=== PATIENT | female | born 1960 | race Caucasian/White ===

== ENCOUNTER 2022-10-21 08:45 | Outpatient (RCR) | payer BC, SELFPAY ==
--- NOTE | 2022-10-20 15:52 | ONC.NURNOTE ---
Patient needs transfusion tomorrow, this will be done on med-surg floor. Patient's was made aware.
[2022-10-21 11:09] VITALS: BP 108/47; PULSE 87; RESP 14; TEMP 36.5; O2SAT 100
[2022-10-21 11:33] VITALS: BP 103/84; PULSE 82; RESP 16; TEMP 35.8; O2SAT 100
[2022-10-21 12:14] VITALS: BP 99/58; PULSE 83; RESP 16; TEMP 36.5; O2SAT 100
[2022-10-21 12:18] VITALS: BP 104/63; PULSE 82; RESP 14; TEMP 36.5; O2SAT 100
[2022-10-21 14:33] VITALS: BP 103/61; PULSE 79; RESP 16; TEMP 36.8; O2SAT 99
== END 2022-10-21 14:38 | disposition home or self-care (01) ==
LOC: BLOODTX 08:45
PROVIDERS: Visit Provider Clinical Nurse Specialist
DX: D61.818 Other pancytopenia (principal); D69.6 Thrombocytopenia, unspecified
CPT/HCPCS: 36415; 36430; 86850; 86900; 86901; 86922; P9016

== ENCOUNTER 2023-01-30 08:30 | Outpatient (RCR) | payer BC, SELFPAY ==
[2022-10-28 08:45] VITALS: BP 99/68; PULSE 92; RESP 16; TEMP 36.4; O2SAT 100
[2022-10-28 10:38] VITALS: BP 98/65; PULSE 93; RESP 18; TEMP 36.7; O2SAT 100
[2022-10-28 10:55] VITALS: BP 100/66; PULSE 96; RESP 20; TEMP 36.6; O2SAT 100
[2022-10-28 11:40] VITALS: BP 101/67; PULSE 93; RESP 18; TEMP 36.9; O2SAT 100
[2022-10-28 12:58] VITALS: BP 103/69; PULSE 91; RESP 18; TEMP 37.1
[2022-10-28 13:28] VITALS: BP 100/64; PULSE 87; RESP 18; TEMP 36.8; O2SAT 100
[2022-11-30 09:41] VITALS: BP 96/60; PULSE 90; RESP 16; TEMP 36.5; O2SAT 99
[2022-11-30 10:00] VITALS: BP 105/68; PULSE 90; RESP 16; TEMP 37; O2SAT 99
[2022-11-30 10:45] VITALS: BP 99/60; PULSE 87; RESP 14; TEMP 36.7; O2SAT 98
[2022-11-30 11:44] VITALS: BP 101/63; PULSE 89; RESP 16; TEMP 37; O2SAT 100
[2022-11-30 12:11] VITALS: BP 104/67; PULSE 88; RESP 16; TEMP 37; O2SAT 99
[2022-12-23 11:14] VITALS: BP 90/51; PULSE 91; RESP 16; TEMP 36.4; O2SAT 100
[2022-12-23 11:33] VITALS: BP 99/64; PULSE 85; RESP 16; TEMP 36.9; O2SAT 100
[2022-12-23 12:18] VITALS: BP 142/78; PULSE 68; RESP 16; TEMP 36; O2SAT 98
[2022-12-23 13:14] VITALS: BP 97/63; PULSE 85; RESP 16; TEMP 36.9; O2SAT 100
[2022-12-23 13:18] VITALS: BP 97/61; PULSE 85; RESP 16; TEMP 36.9; O2SAT 100
[2022-12-23 14:17] VITALS: BP 95/62; PULSE 79; RESP 16; TEMP 37.1; O2SAT 97
--- NOTE | 2023-01-27 08:04 | ONC.NURNOTE ---
Dx: Bladder Cancer, chemotherapy induced anemia. Left message on phone for patient to call back to schedule blood transfusion
[2023-01-30 08:29] VITALS: BP 109/64; PULSE 96; RESP 16; TEMP 36.7
[2023-01-30 08:56] VITALS: BP 104/64; PULSE 96; RESP 16; TEMP 36.7; O2SAT 97
[2023-01-30 09:13] VITALS: BP 99/61; PULSE 77; RESP 18; TEMP 36.9; O2SAT 98
[2023-01-30 09:58] VITALS: BP 105/66; PULSE 69; RESP 20; TEMP 37.1; O2SAT 99
[2023-01-30 11:22] VITALS: BP 100/64; PULSE 67; RESP 16; TEMP 36.9; O2SAT 99
== END 2023-04-26 23:59 | disposition home or self-care (01) ==
LOC: CCIC 08:30
PROVIDERS: Visit Provider Clinical Nurse Specialist
DX: C67.9 Malignant neoplasm of bladder, unspecified (principal); D64.81 Anemia due to antineoplastic chemotherapy
CPT/HCPCS: 36415; 36430; 86850; 86900; 86901; 86922; P9016

== ENCOUNTER 2023-07-25 14:17 | Inpatient (IN) | payer BC, SELFPAY ==
[2023-07-25 14:49] VITALS: BP 139/85; PULSE 119; RESP 22; TEMP 37.1; O2SAT 94; BMI 16.8
--- NOTE | 2023-07-25 16:28 | PC.SOCIAL ---
Received a phone call from Jana Quintana at [facility] at [phone] requesting information and status on pt. Jana informs that pt will be opening for services with a [facility] branch in the [facility]. salesperson women's hats for the [facility] branch is Laura and she can be reached at [phone]. Discussed with Laura and she informs that [facility] can open hospice services at the pt's home tomorrow at 9:00 am. Provided update to ED nurse and ED MD. informs that pt's has concerns for stairs in the home and pain management. Provided update to Laura at [facility]. Laura will follow up with ED and pt's regarding discharge plan. Laura is requesting that if pt discharges tonight, pt have a pain medication prescription for a few days due to Hospice having to order and get medication and they do not want a lapse in pain medication. Provided update to ED Nurse. Social work will follow up as needed.
[2023-07-25] MEDS: HYDROmorphone 0.5 mg/0.5 ml inj 1 MG IVP ×3 (16:34→22:12)
[2023-07-25] MEDS: ONDANSETRON 2 MG/ML inj 4 MG IVP (16:34)
[2023-07-25 17:01] LABS: Lactate* 1.8 mmol/L (0.5-1.9)
[2023-07-25 17:04] LABS: Hematocrit 29.8 % (33.0-51.0); Hemoglobin* 8.8 gm/dL (12.0-16.0); Immature Granulocytes Pct Auto 0.8 %; Lymphocytes Percent Auto 3.5 % (20-44); Mean Corpuscular HGB Conc 30 gm/dL (32-36); Mean Corpuscular Hemoglobin 25 pg (26-34); Mean Corpuscular Volume 85 fL (80-100); Monocytes Percent Auto 5.4 % (0.0-11.0); Neutrophils Percent Auto 90.3 % (42.0-72.0); Platelet Count* 371 K/uL (140-440); RDW Coefficient of Variation % 16.9 % (11.5-15.5); Red Blood Count 3.52 m/uL (4.00-5.20); White Blood Count* 13.12 K/uL (4.50-11.00)
[2023-07-25 17:06] LABS: Slide Review Reflex No
--- NOTE | 2023-07-25 17:12 | ED.NURSE ---
Spoke to [facility] director hospice operations. She just received referral for patient this afternoon. She will plan on sending out Jana, a hospice clinical unit coordinator, tomorrow to the [facility].
--- NOTE | 2023-07-25 17:30 | ED.GENADULT ---
HPI - General Adult General Date Seen: 07/25/23 Chief complaint: Unspecified Complaint, Adult Stated complaint: Needs placement--referred by [facility] Time Seen by Provider: 07/25/23 14:52 History of Present Illness HPI narrative: This is a 62-year-old female who is brought to the ER today by her . They were referred to the ER by their oncologist, Dr. Mishra through [facility] in [place]. She has a past medical history of metastatic urothelial carcinoma. Diagnosed in August 2022. She has known metastases to her bones and lungs also with a recent spot in her liver. She had been treated with chemotherapy last spring with some response. She was switched to immunotherapy over the summer with worsening disease. She is now back on chemo. Currently on Enfortumab and Pembro, and has had 5 or 6 rounds dating back to April.. Her last visit with the oncologist was on July 18. I am provided with a copy of the clinic note from that visit. According to that note she has recurrent noninvasive bladder cancer. Goal of treatment is palliative. PET scan on 06/19/2023 showed partial favorable response involving lung and liver but FDG avid sclerosis throughout much of the skeleton consistent with a wide spread osseous metastasis. She is chronically on opiates for her bone pain. She takes methadone 7.5 mg in the morning, 7.5 mg in the afternoon, and 10 mg in the evening. She takes oxycodone 10 mg every 8 hours as needed for breakthrough pain. She is on roughly 20-30 mg of oxycodone every day. Despite her opiates she has had increasing and worsening debilitating pain for the past few weeks. She has been having so much pain, especially in her back, that she is not able to get out of bed. She has been living with her . He has been trying to care for her but she has been almost essentially bed ridden. They have an entire flight of 12 steps to get into their house and then an additional flight of 12 steps to get up to her bedroom. She has been living on the main floor of the house but not able to go up stairs for the past few weeks. She has also had very poor appetite and decreased oral intake. She has not been functioning well and has been living in misery. They went back to the clinic today. Apparently based on her clinical deterioration, her oncologist felt that she was not suitable for on chemo today. He has placed a referral to begin the process of arranging hospice care. Because of her pain, he referred her here to the hospital for pain control. Her says with her weakness and pain he does not think he can get her back up the stairs to get into their home. I contacted Dr. Mishra on the phone. Based on a conversation he indicates that likely that the patient would transition to hospice and palliative care. Dr. Mishra would like her to have 1 more PET scan which is scheduled for August 03 to double check for progression of disease. Based on his clinical assessment, he think she is not likely to benefit from further chemo. She has been on Eliquis 2.5 mg b.i.d. for prophylaxis. Labs drawn in clinic this morning for pre chemo planning showed a white count of 14.1. Dr. Alvarez indicates that she has been running high for the past few weeks. Hemoglobin is 10.0. Platelet count was 491. Recently she had been thrombocytopenic. [facility] placed a referral for hospice. The hospital nephrology social worker was able to contact [facility]. Discussed with Sergio now at 6 8 2 2 That organization would be able to have a person out to meet with the patient and her at their house as early as tomorrow to begin the process of explaining hospice and figuring out what is necessary to meet their needs. It does not sound like [facility] has a long-term care facility or immediate nursing supportive care to support the patient at home tonight. Related Data Home Medications Medication Instructions Recorded Confirmed calcium carbonate 500 mg calcium 500 mg PO DAILY 11/30/22 07/25/23 (1,250 mg) tablet cholecalciferol (vitamin D3) 50 50 mcg PO DAILY 11/30/22 07/25/23 mcg (2,000 unit) capsule famotidine 20 mg tablet 20 mg PO BID 11/30/22 07/25/23 gabapentin 600 mg tablet 600 mg PO QPM 11/30/22 07/25/23 lorazepam 0.5 mg tablet 0.5 mg PO Q4H PRN nausea 11/30/22 07/25/23 multivitamin 1 tab PO DAILY 11/30/22 07/25/23 ondansetron 8 mg disintegrating 8 mg PO Q8H PRN 11/30/22 07/25/23 tablet oxycodone 5 mg tablet 5 mg PO Q4H PRN 11/30/22 07/25/23 polyethylene glycol 3350 17 17 g PO DAILY PRN 11/30/22 07/25/23 gram/dose oral powder (ClearLax) prochlorperazine maleate 5 mg 5 - 10 mg PO Q6H PRN nausea 11/30/22 07/25/23 tablet sennosides 8.6 mg tablet (Sparkle-kvng) 8.6 mg PO BID 11/30/22 07/25/23 acetaminophen 500 mg capsule 1,000 mg PO QID PRN 07/25/23 07/25/23 apixaban 2.5 mg tablet (Eliquis) 2.5 mg PO BID 07/25/23 07/25/23 gabapentin 300 mg capsule 300 mg PO QAM 07/25/23 07/25/23 iron,carbonyl 65 mg-vitamin C 125 1 tab PO DAILY 07/25/23 07/25/23 mg tablet,delayed release (Vitron-C) levothyroxine 25 mcg tablet 25 mcg PO DAILY 07/25/23 07/25/23 methadone 5 mg tablet 10 mg PO Q8H 07/25/23 07/25/23 mirtazapine 15 mg tablet 15 mg PO DAILY 07/25/23 07/25/23 sennosides 8.6 mg-docusate sodium 1 tab PO BID PRN constipation 07/25/23 07/25/23 50 mg tablet (Senna Plus) Allergies Allergy/AdvReac Type Severity Reaction Status Date / Time cat dander Allergy Mild Verified 07/25/23 14:40 dog dander Allergy Mild Verified 07/25/23 14:40 grass pollen Allergy Mild Verified 07/25/23 14:40 weed pollen Allergy Mild Verified 07/25/23 14:40 tree and shrub pollen Allergy Verified 07/25/23 14:40 [facility] PFSH Medical History Cancer cachexia ?R64 - Cachexia (ICD-10) Cancer associated pain ?G89.3 - Neoplasm related pain (acute) (chronic) (ICD-10) Metastatic urothelial carcinoma ?C79.10 - Secondary malignant neoplasm of unspecified urinary organs (ICD-10) Social History Narrative: . Lives with her . Active in her nithin. Now requests comfort focus measures and consultation for hospice services. What is your current living situation?: I presently have a place to live Problems where you live: no known problems Problems where you live details: none In the past 12 months, utilities in danger of being shut off: no In past 12 months, lack of transportation kept you from medical appts, meetings, work, or getting things needed for daily living: no In the past 12 mos, have been you worried that your food would run out before you had money to buy more?: never true In the past 12 mos, the food you bought just didn't last and you didn't have money to buy more?: never true Highest level of school completed/degree received: Bachelor's degree Smoking Status: Never smoker Do you use any of these nicotine containing products: None Second hand tobacco smoke exposure: No How often do you have a drink containing alcohol: monthly or less How many standard drinks containing alcohol do you have on a typical day: 1 or 2 How often do you have six or more drinks on one occasion: Never AUDIT-C Alcohol total score: 1 Non-prescribed substance use: denies use Caffeine: No How often does anyone, including family, friends and others, physically hurt you: never How often does anyone, including family, friends and others, insult or talk down to you: never How often does anyone, including family, friends and others, threaten you with harm: never How often does anyone, including family, friends and others, scream or curse at you: never service: No Exam Narrative: Exam Narrative: Constitutional: She is alert but uncomfortable appearing. Looks very frail and thin and chronically ill. Pale. HENT: Head: Atraumatic. Nose: Nose normal. Mouth/Throat: Oral mucosa is clear and moist. no trismus. Eyes: Conjunctivae normal. EOM normal. Pupils equal, round, and reactive to light. No scleral icterus. Neck: Normal range of motion. Neck supple. No tracheal deviation present. Cardiovascular: Normal rate, regular rhythm. No gallop. No friction rub. No murmur heard. Symmetric radial artery pulses Pulmonary/Chest: Effort normal. No stridor. No respiratory distress. No wheezes. No rales. No rhonchi . Abdominal: Soft. No distension. No mass. No tenderness. No rebound. No guarding. Musculoskeletal: 2 to weakness and pain she is not able to sit up for back exam. RUE: Normal range of motion. No tenderness. No deformity LUE: Normal range of motion. No tenderness. No deformity RLE: Normal range of motion. No edema. No tenderness. No deformity LLE: Normal range of motion. No edema. No tenderness. No deformity Neurological: Alert and oriented to person, place, and time, but at times seems confused. provides most of her history.. Normal strength. CN II-VII intact. No sensory deficit. GCS eye subscore is 4. GCS verbal subscore is 5. GCS motor subscore is 6. Normal coordination Skin: Skin is warm and dry. No rash noted. No pallor. Normal capillary refill. Psychiatric: Normal mood. Flat affect. supportively at her side. Const: Vital Signs, click to edit/add: Vital Signs - 24 hr 07/25/23 14:49 Temperature 98.7 F Pulse Rate [Pulse Oximeter] 119 H Respiratory Rate 22 Blood Pressure [Ri ght Upper Arm] 139/85 Pulse Oximetry 94 Oxygen Delivery Me thod Room Air Course Course ED Course: Had initial discussion with the patient and her . It sounds like they have been doing treatment for her cancer but were told today that there was likely no further benefit to chemo so her oncologist referred them to hospice today. Her says he has been aware that the and would likely come but really was not prepared for to be today. Their primary goal will be comfort. They really are not interested in any interventions that would prolong her life and suffering, unless they lead to improvement in pain or potential cure for her malignancy. Contacted social Work and discussed with Jacqueline. They have already been in contact with [facility], with Jacqueline at [phone]. [facility] would be able to have a person out to the patient's home tomorrow at 9 to help is to start the intake process for hospice. Patient and her feel that she is too weak and would not be able to walk upper 12 steps to get into her home. I made a call to Dr. Mishra, oncology. I reviewed the patient's presentation. They had been pursuing palliative chemotherapy. However given worsening chest week to this week he feels that chemotherapy is not indicated today. Dr. Mishra feels this is probably terminal and the patient should probably go to palliative care and hospice. Dr. Mishra would like to have a follow-up PET scan next week, to confirm progression of the cance, , but understands that may not be feasible. More importantwould be treated the patient's pain and keeping her comfortable. He requests that we call him back with any questions on his cellphone [phone]. We established IV and administered IV Dilaudid. Patient was more comfortable after that. She was able to set up an eat a small amount of food. She was still too weak to get up and walk her go home. We felt that hospitalization was warranted. Unfortunately there were initially no beds available here in [place]. We looked for other beds in the regions. There were no beds at [facility], or other hospitals in our region. Patient does not want to transfer to [facility] after having a bad experience there in the past. Subsequently we were able to open up a bed on the medical floor. Patient is accepted for admission by the hospitalist, Dr. Carr. He Vital Signs Vital signs: Initial Vital Signs Temperature 98.7 F 07/25/23 14:49 Temperature Source Temporal Artery Scan 07/25/23 14:49 Pulse Rate 119 H 07/25/23 14:49 Pulse Rhythm Regular 07/25/23 14:49 Pulse Strength 3+ Normal 07/25/23 14:49 Respiratory Rate 22 07/25/23 14:49 Blood Pressure 139/85 07/25/23 14:49 Blood Pressure Mean 103 07/25/23 14:49 Blood Pressure Position Sitting 07/25/23 14:49 Pulse Oximetry 94 07/25/23 14:49 Oxygen Delivery Method Room Air 07/25/23 14:49 Vital Signs Temperature 98.7 F 07/25/23 14:49 Pulse Rate 119 H 07/25/23 14:49 Respiratory Rate 22 07/25/23 14:49 Blood Pressure 139/85 07/25/23 14:49 Pulse Oximetry 94 07/25/23 14:49 Oxygen Delivery Method Room Air 07/25/23 14:49 Temperature 97 F L 07/25/23 21:03 Pulse Rate 103 H 07/25/23 21:03 Respiratory Rate 20 07/25/23 22:41 Blood Pressure 128/78 07/25/23 21:03 Pulse Oximetry 84 L 07/25/23 22:41 Oxygen Delivery Method Room Air 07/25/23 22:41 Medications Administered Medications: Generic Name Dose Route Start Last Admin Trade Name Freq PRN Reason Stop Dose Admin Apixaban 2.5 mg 07/25/23 21:00 07/25/23 22:08 Apixaban 5 Mg Tablet PO 2.5 mg BID SEBASTIAN Administration Famotidine 20 mg 07/25/23 21:00 07/25/23 22:12 Famotidine 20 Mg Tablet PO 20 mg BID SEBASTIAN Administration Hydromorphone HCl 1 mg 07/25/23 15:44 07/25/23 22:12 Hydromorphone 0.5 Mg/0.5 Ml Inj IVP 0.5 mg Q1H PRN Administration Pain Methadone HCl 10 mg 07/25/23 22:00 07/25/23 22:12 Methadone 5 Mg Tablet PO 10 mg Q8H SEBASTIAN Administration Sennosides 1 tab 07/25/23 21:00 07/25/23 22:07 Sennosides 1 Tab Tablet PO 1 tab BID SEBASTIAN Administration Sodium Chloride 5 ml 07/25/23 21:00 07/25/23 21:41 Sodium Chloride 0.9 % (Flush) 10 Ml Syringe IVF 5 ml BID SEBASTIAN Administration Discontinued Medications Generic Name Dose Route Start Last Admin Trade Name Freq PRN Reason Stop Dose Admin Ondansetron HCl 4 mg 07/25/23 15:44 07/25/23 16:34 Ondansetron 2 Mg/Ml Inj IVP 07/25/23 15:45 4 mg ONCE ONE Administration Medical Decision Making MDM Narrative Medical decision making narrative: This is a 62-year-old female with advancing metastatic urothelial carcinoma from her bladder. She has known Mets to her bones, lungs, liver. She has progressing illness despite chemotherapy. She was sent here from her oncologist office to the ER today for pain control and with a plan to initiate hospice per The patient and her are a bit surprised by the change in treatment plan, but they are accepting. Their main goal is comfort and not to have aggressive workup or any procedures that might prolong her life without improving her pain or improving her cancer. Their main goal is comfort care. Did do screening labs which showed normal kidney function and electrolytes. CBC is abnormal with a mild leukocytosis, anemia which is likely due to chronic disease. At this point no fever or other clear symptoms of infection. Should be admitted to the hospitalist service. Staff from [facility] will apparently be able to consult with the patient and her tomorrow morning at 10:00 p.m. here at the hospital. Lab Data Labs: Lab Results 07/25/23 Range/Units 16:55 WBC 13.12 H (4.50-11.00) K/uL RBC 3.52 L (4.00-5.20) m/uL Hgb 8.8 L (12.0-16.0) gm/dL Hct 29.8 L (33.0-51.0) % MCV 85 (80-100) fL MCH 25 L (26-34) pg MCHC 30 L (32-36) gm/dL RDW Coeff of Jessica 16.9 H (11.5-15.5) % Plt Count 371 (140-440) K/uL Neut % (Auto) 90.3 H (42.0-72.0) % Lymph % (Auto) 3.5 L (20-44) % Cherry % (Auto) 5.4 (0.0-11.0) % Eos % (Auto) 0.0 (0.0-7.0) % Baso % (Auto) 0.0 (0.0-3.0) % Neut # (Auto) 11.80 H (1.7-7.0) K/uL Lymph # (Auto) 0.50 L (0.90-2.90) K/uL Cherry # (Auto) 0.70 (0.00-0.90) K/UL Eos # (Auto) 0.00 (0.00-0.50) K/uL Baso # (Auto) 0.00 (0.00-0.30) K/uL Abs Immat Gran (auto) 0.10 (0.00-0.30) K/uL Imm/Tot Granulo (auto) 0.8 % Sodium 134 L (135-149) mmol/L Potassium 3.7 (3.6-5.1) mmol/L Chloride 102 (96-114) mmol/L Carbon Dioxide 24 (20-32) mmol/L Anion Gap 8 (7-15) mEq/L BUN 15 (7-30) mg/dL Creatinine 0.3 L (0.5-1.5) mg/dL Estimated Creat Clear 38.43 Estimated GFR 120 ml/min Glucose 102 (60-115) mg/dL Lactate 1.8 (0.5-1.9) mmol/L Calcium 8.4 (8.4-10.6) mg/dL Total Bilirubin 0.4 (0.1-1.5) mg/dL AST 33 (12-35) U/L ALT 12 (4-35) U/L Alkaline Phosphatase 352 H (40-150) U/L Total Protein 6.1 (6.0-8.3) g/dL Albumin 3.2 L (3.3-5.0) g/dL Discharge Plan Discharge Clinical Impression: Intractable back pain, Generalized weakness, Malignant neoplasm metastatic from bladder Patient Disposition: Admitted As Observation
[2023-07-25 17:47] LABS: Albumin* 3.2 g/dL (3.3-5.0); Chloride* 102 mmol/L (96-114); Potassium* 3.7 mmol/L (3.6-5.1); Sodium* 134 mmol/L (135-149)
[2023-07-25 17:50] LABS: Alanine Aminotransferase* 12 U/L (4-35); Alkaline Phosphatase* 352 U/L (40-150); Aspartate Amino Transferase* 33 U/L (12-35); Bilirubin Total* 0.4 mg/dL (0.1-1.5); Blood Urea Nitrogen* 15 mg/dL (7-30); Carbon Dioxide* 24 mmol/L (20-32); Creatinine* 0.3 mg/dL (0.5-1.5); Est. Creatinine Clearance* 38.43; Estimated Glomerular Filt Rate 120 ml/min; Glucose* 102 mg/dL (60-115)
[2023-07-25 17:51] LABS: Calcium* 8.4 mg/dL (8.4-10.6)
[2023-07-25 18:02] LABS: Anion Gap 8 mEq/L (7-15)
[2023-07-25 18:21] LABS: Total Protein* 6.1 g/dL (6.0-8.3)
--- NOTE | 2023-07-25 19:47 | ED.NURSE ---
I have rounded on patient to offer pain medications, she has declined and will push call light when needed.
--- NOTE | 2023-07-25 20:46 | PC.NURSE ---
2030 Pt tranferred via gurney with multiple items of belongings. accompany and is supportive. 3 staff to transfer pt to bed 262 on med-surg. Pt tolerated all this well. Prior to transfer major areas of pain are right leg and back.
[2023-07-25 21:03] VITALS: BP 128/78; PULSE 103; RESP 20; TEMP 36.1; O2SAT 84; BMI 16.5
--- NOTE | 2023-07-25 21:22 | PM.IMHP1 ---
Hospitalist- H&P: HPI History of Present Illness Date Seen: 07/25/23 Chief complaint: Needs placement--referred by [facility] Narrative: Bernadette Pastrana is a 62 year old woman with known widely metastatic urothelial carcinoma, progressive despite chemotherapy and immunotherapy efforts. Has known metastases to lungs, liver, and her skeleton. Presented to the oncology clinic today and was deemed no longer safe to continue to receive chemotherapy. Referral was made for hospice consultation. Patient was urged to present to the hospital emergency department to assist with ongoing efforts at difficult to manage cancer associated pain. Has been working with her oncologist and the staff in her oncology clinic to achieve a modicum of pain control. Has been on methadone 7.5 mg in the morning, 7.5 mg in the afternoon, and 10 mg at bedtime. Additionally has been taking as needed oxycodone, up to 20-30 mg daily, but still not achieving adequate pain control. She indicates her life has been miserable the last several days. Has had minimal oral intake recently. Has BMI of 16.8 with a weight of 41.7 kg height of 157.5 cm. Has evolving cancer cachexia and weight loss. Patient and are known agreement that they wish to proceed with comfort focus measures only with DNR DNI resuscitation status. They understand that she is no longer a candidate for chemotherapy or immunotherapy. She is not a surgical candidate. She declines any additional disease directed diagnostic or interventional efforts. [facility] Medical History Cancer cachexia ?R64 - Cachexia (ICD-10) Cancer associated pain ?G89.3 - Neoplasm related pain (acute) (chronic) (ICD-10) Metastatic urothelial carcinoma ?C79.10 - Secondary malignant neoplasm of unspecified urinary organs (ICD-10) Social History Narrative: . Lives with her . Active in her nithin. Now requests comfort focus measures and consultation for hospice services. Meds Home Medications and Allergies Home Medications Medication Instructions Recorded Confirmed Type calcium carbonate 500 mg calcium 500 mg PO DAILY 11/30/22 07/25/23 History (1,250 mg) tablet cholecalciferol (vitamin D3) 50 50 mcg PO DAILY 11/30/22 07/25/23 History mcg (2,000 unit) capsule famotidine 20 mg tablet 20 mg PO BID 11/30/22 07/25/23 History gabapentin 600 mg tablet 600 mg PO QPM 11/30/22 07/25/23 History lorazepam 0.5 mg tablet 0.5 mg PO Q4H PRN nausea 11/30/22 07/25/23 History multivitamin 1 tab PO DAILY 11/30/22 07/25/23 History ondansetron 8 mg disintegrating 8 mg PO Q8H PRN 11/30/22 07/25/23 History tablet oxycodone 5 mg tablet 5 mg PO Q4H PRN 11/30/22 07/25/23 History polyethylene glycol 3350 17 17 g PO DAILY PRN 11/30/22 07/25/23 History gram/dose oral powder (ClearLax) prochlorperazine maleate 5 mg 5 - 10 mg PO Q6H PRN nausea 11/30/22 07/25/23 History tablet sennosides 8.6 mg tablet (Sparkle-kvng) 8.6 mg PO BID 11/30/22 07/25/23 History acetaminophen 500 mg capsule 1,000 mg PO QID PRN 07/25/23 07/25/23 History apixaban 2.5 mg tablet (Eliquis) 2.5 mg PO BID 07/25/23 07/25/23 History gabapentin 300 mg capsule 300 mg PO QAM 07/25/23 07/25/23 History iron,carbonyl 65 mg-vitamin C 125 1 tab PO DAILY 07/25/23 07/25/23 History mg tablet,delayed release (Vitron-C) levothyroxine 25 mcg tablet 25 mcg PO DAILY 07/25/23 07/25/23 History methadone 5 mg tablet 10 mg PO Q8H 07/25/23 07/25/23 History mirtazapine 15 mg tablet 15 mg PO DAILY 07/25/23 07/25/23 History sennosides 8.6 mg-docusate sodium 1 tab PO BID PRN constipation 07/25/23 07/25/23 History 50 mg tablet (Senna Plus) Allergies Allergy/AdvReac Type Severity Reaction Status Date / Time cat dander Allergy Mild Verified 07/25/23 14:40 dog dander Allergy Mild Verified 07/25/23 14:40 grass pollen Allergy Mild Verified 07/25/23 14:40 weed pollen Allergy Mild Verified 07/25/23 14:40 tree and shrub pollen Allergy Verified 07/25/23 14:40 Exam Narrative: Exam Narrative: I examined the patient in the emergency department with her at her side. By the time examine her she appears comfortable and in no acute distress. Has cachectic appearance, protruding bony prominences in face with sunken eyes. Thin limbs with muscle atrophy. Alert, oriented to self, place, time, situation. Gracious, friendly, cooperative. Lungs are clear to auscultation. Heart tones with regular rhythm, tachycardic. Abdomen is thin with active bowel sounds, soft. No focal motor neurologic deficits. Const: Vital Signs, click to edit/add: Vital Signs - 24 hr 07/25/23 14:49 Temperature 98.7 F Pulse Rate [Pulse Oximeter] 119 H Respiratory Rate 22 Blood Pressure [Ri ght Upper Arm] 139/85 Pulse Oximetry 94 Oxygen Delivery Me thod Room Air Documenting provider has reviewed patient's vital signs: yes Hospitalist - H&P: Result Labs Labs: Short CBC 07/25/23 Range/Units 16:55 WBC 13.12 H (4.50-11.00) K/uL Hgb 8.8 L (12.0-16.0) gm/dL Hct 29.8 L (33.0-51.0) % Plt Count 371 (140-440) K/uL BMP 07/25/23 16:55 Sodium 134 L Potassium 3.7 Chloride 102 Carbon Dioxide 24 BUN 15 Creatinine 0.3 L Glucose 102 Calcium 8.4 Liver Function 07/25/23 Range/Units 16:55 Total Bilirubin 0.4 (0.1-1.5) mg/dL AST 33 (12-35) U/L ALT 12 (4-35) U/L Alkaline Phosphatase 352 H (40-150) U/L Albumin 3.2 L (3.3-5.0) g/dL Assessment and Plan Assessment and plan (1) Metastatic urothelial carcinoma: Problem comment: - diagnosed August 2022 - widely metastatic to lungs, liver, and throughout the skeleton - disease progression despite having been treated with chemotherapy and immunotherapy - oncologist, Dr. Mishra, [place] [facility], [place], [place] Status: Acute (2) Cancer associated pain: Problem comment: - difficult to manage pain despite escalating efforts in outpatient setting Status: Acute (3) Cancer cachexia: Status: Acute (4) Terminal care: Problem comment: - goal of treatment had been palliative - referred for hospice care on 07/25/2023 by her oncologist Status: Acute Plan 1. Reviewed impression with patient and . 2. Answered their questions. 3. They clearly state that they wish to proceed with comfort focus measures only with DNR DNI resuscitation status. They decline any additional disease directed diagnostic or interventional efforts. 4. Intensify her comfort focus treatment efforts in the hospital. 5. Work with drug abuse social worker to try to establish hospice referral and consultation. 6. Their goal is to try to return home with increasing support and services including with hospice if at all possible. Meanwhile work on establishing better pain management before returning to their home. 7. Patient and agreeable with above stated plans and recommendations.
[2023-07-25] MEDS: SODIUM CHLORIDE 0.9 % (FLUSH) 10 ML SYRINGE 5 ML IVF (21:41)
[2023-07-25] MEDS: SENNOSIDES 1 TAB TABLET PO (22:07)
[2023-07-25] MEDS: APIXABAN 5 MG TABLET 2.5 MG PO (22:08)
[2023-07-25] MEDS: FAMOTIDINE 20 MG TABLET PO (22:12)
[2023-07-25] MEDS: METHADONE 5 MG TABLET 10 MG PO (22:12)
[2023-07-25 22:41] VITALS: RESP 20; O2SAT 84
[2023-07-25 23:00] VITALS: PULSE 106; RESP 22; O2SAT 95
[2023-07-26] MEDS: HYDROmorphone 0.5 mg/0.5 ml inj 1 MG IVP ×6 (00:22→21:13)
[2023-07-26] MEDS: SODIUM CHLORIDE 0.9 % (FLUSH) 10 ML SYRINGE 5 ML IVF ×9 (00:22→22:53)
[2023-07-26] MEDS: MORPHINE 10 MG/0.5 ML ORAL SOLN PO ×8 (00:29→22:53)
[2023-07-26 07:00] VITALS: PULSE 112; RESP 20; O2SAT 94
[2023-07-26] MEDS: ONDANSETRON ODT 4 MG TAB 8 MG PO (07:44)
[2023-07-26] MEDS: METHADONE 5 MG TABLET 10 MG PO (07:50)
[2023-07-26] MEDS: LEVOTHYROXINE 25 MCG TABLET PO (07:50)
[2023-07-26] MEDS: LORazepam 2 MG/ML inj IVP ×6 (08:35→22:52)
[2023-07-26] MEDS: fentaNYL 25 MCG/HR PATCH 1 PATCH TRANSDERMA (09:54)
--- NOTE | 2023-07-26 10:11 | REH.OT ---
Pt. not appropriate for OT eval. Pt. to initiate hospice services. Order Cancelled.
--- NOTE | 2023-07-26 14:34 | PM.IMPN1 ---
Progress Note: A&P Assessment and plan (1) Metastatic urothelial carcinoma: Problem details: - diagnosed August 2022 - widely metastatic to lungs, liver, and throughout the skeleton - disease progression despite having been treated with chemotherapy and immunotherapy - oncologist, Dr. Mishra, [place] [facility], [place], [place] Status: Acute (2) Cancer associated pain: Problem details: - difficult to manage pain despite escalating efforts in outpatient setting Status: Acute (3) Cancer cachexia: Status: Acute (4) Terminal care: Problem details: - goal of treatment had been palliative - referred for hospice care on 07/25/2023 by her oncologist Status: Acute Plan - hospice will patient in the hospital today to discuss admission - continue current pain medications to ensure adequate pain control - likely home with hospice tomorrow (07/27) - updated at bedside Subjective Date Seen: 07/26/23 Interval history: Bernadette was admitted to the hospital on 07/26/23 for poorly managed pain. Exam Narrative: Exam Narrative: GEN: Patient is lying in bed, cachectic and appears chronically ill CV: Pulse palpates as sinus tachycardia R: Tachypnea at rest Const: Vital Signs, click to edit/add: Vital Signs - 24 hr 07/25/23 14:49 07/25/23 21:03 07/25/23 22:41 Temperature 98.7 F 97 F L Pulse Rate [Pulse Oximeter] 119 H 103 H Respiratory Rate 22 20 20 Blood Pressure [Le ft Arm] 128/78 Blood Pressure [Ri ght Upper Arm] 139/85 Pulse Oximetry 94 84 L 84 L Oxygen Delivery Me thod Room Air Room Air Room Air Oxygen Flow Rate 07/25/23 23:00 07/25/23 23:00 07/26/23 07:00 Temperature Pulse Rate [Pulse Oximeter] 106 H Respiratory Rate 22 20 Blood Pressure [Le ft Arm] Blood Pressure [Ri ght Upper Arm] Pulse Oximetry 95 94 Oxygen Delivery Me thod Nasal Cannula Nasal Cannula Oxygen Flow Rate 1 1 07/26/23 07:00 Temperature Pulse Rate [Pulse Oximeter] 112 H Respiratory Rate 20 Blood Pressure [Le ft Arm] Blood Pressure [Ri ght Upper Arm] Pulse Oximetry Oxygen Delivery Me thod Oxygen Flow Rate Labs Labs: Laboratory Results - last 24 hr 07/25/23 16:55 WBC 13.12 H RBC 3.52 L Hgb 8.8 L Hct 29.8 L MCV 85 MCH 25 L MCHC 30 L RDW Coeff of Jessica 16.9 H Plt Count 371 Neut % (Auto) 90.3 H Lymph % (Auto) 3.5 L [place] % (Auto) 5.4 Eos % (Auto) 0.0 Baso % (Auto) 0.0 Neut # (Auto) 11.80 H Lymph # (Auto) 0.50 L [place] # (Auto) 0.70 Eos # (Auto) 0.00 Baso # (Auto) 0.00 Abs Immat Gran (auto) 0.10 Imm/Tot Granulo (auto) 0.8 Sodium 134 L Potassium 3.7 Chloride 102 Carbon Dioxide 24 Anion Gap 8 BUN 15 Creatinine 0.3 L Estimated Creat Clear 38.43 Estimated GFR 120 Glucose 102 Lactate 1.8 Calcium 8.4 Total Bilirubin 0.4 AST 33 ALT 12 Alkaline Phosphatase 352 H Total Protein 6.1 Albumin 3.2 L
[2023-07-26 15:00] VITALS: PULSE 120; RESP 22
--- NOTE | 2023-07-26 15:02 | PC.SOCIAL ---
Discharge planning- Phone call to Jana Quintana at [facility] at [phone]. Jana met with pt's this morning for an informational hospice meeting. Pt's informed that he would like to take pt home with hospice in place. Contact for [facility] will be Corrie at [phone]. Hospice is requesting information on what DME is needed in the home and discharge plans. Met with pt's in room to discuss discharge plans. Pt's is feeling overwhelmed and unsure if he can handle pt's care at home. Discussed options with and provided information for home aide care. Discussed options on shelter placement with hospice in place. Pt's would like to discuss with pt's sister this evening and then make a decision. If pt's sister can assist in the home with cares pt's would like to try taking pt home with hospice. Provided update to and Corrie at [facility]. This worker will reach out to [facility] tomorrow morning with discharge plans. Informed [facility] that pt will need a hospital bed at home. Social work will follow up as needed.
--- NOTE | 2023-07-26 15:23 | PC.NURSE ---
End Of Shift Note: When I first arrived on shift. Patient was clearly in a lot of pain. She was very restless and even stated I am in so much pain I can't get comfortable. She received several medications and she was able to rest on and off throughout shift. See MAR for all medications given. has been supportive and at her bedside most of the day. Update Dr. Miles about not doing her routine am medications as I had given her pain medications and she was finally resting and did not want to wake her for them. She was ok with not giving them. Deborah Murphy RN given report and will not assume her care.
--- NOTE | 2023-07-26 17:20 | PC.SOCIAL ---
Discharge planning: Met at length with pt's and two sisters who have arrived to assist with discharge planning. Answered family questions about hospice and retirement care options. Family wants to talk with physicioan regarding her medical condition as they do not feel they can make a discharge decision without more information from the doctor. Family suggested pt stay at the hospital with hospice services instead of being sent to another facility or home. Explained hospice options of home or retirement. Family to discuss and will have a decision on discharge plan tomorrow. states he has four lists of nursing facilities that are in network provided by his insurance thorugh an email. attempted to email these lists to social science teacher multiple times with no success. plans to email these lists to social science teacher and provide social science teacher with a list of preferred facilities if they decide on SNF placement for pt. universal worker assisted living to follow up tomorrow morning.
[2023-07-26 23:00] VITALS: PULSE 120; RESP 22
[2023-07-27] MEDS: HYDROmorphone 0.5 mg/0.5 ml inj 1 MG IVP ×4 (00:28→08:09)
[2023-07-27] MEDS: SODIUM CHLORIDE 0.9 % (FLUSH) 10 ML SYRINGE 5 ML IVF ×8 (00:29→17:52)
[2023-07-27] MEDS: MORPHINE 10 MG/0.5 ML ORAL SOLN PO ×2 (02:22→19:31)
--- NOTE | 2023-07-27 04:59 | PC.NURSE ---
End of shift: Patient restless at times and yelling out/moaning with any movement or touch. PRN Dilaudid, Morphine and Ativan given. See eMAR. Patient opens her eyes occasionally to voice and with movement. No verbal communication. Frequent turn and reposition and oral cares. Incontinent of urine. No BM. Mepilex to reddened coccyx.
--- NOTE | 2023-07-27 09:40 | P.IMPN_ITS ---
Progress Note: A&P Assessment and plan (1) Terminal care: Problem details: - at this point, patient appears to be in imminent status, would not tolerate transfer - continue end of life comfort cares Status: Acute (2) Metastatic urothelial carcinoma: Problem details: - diagnosed August 2022 - widely metastatic to lungs, liver, and throughout the skeleton - disease progression despite having been treated with chemotherapy and immunotherapy - oncologist, Dr. Mishra, [place] [facility], [place], [place] Status: Acute (3) Cancer associated pain: Problem details: - difficult to manage pain despite escalating efforts in outpatient setting Status: Acute (4) Cancer cachexia: Status: Acute Plan - per above - reviewed plan of care with and sister Subjective Date Seen: 07/27/23 Interval history: Bernadette was admitted to the hospital on 07/26/23 for poorly managed pain in known metastatic cancer. She was set up for a hospice admit at home yesterday, but given poor pain management and imminent status, she will remain in the hospital for end of life care. Frankie in agreement. Exam Narrative: Exam Narrative: Patient is cachectic, laying in bed, minimally responsive Had received pain medications prior to my visit, appears comfortable Const: Vital Signs, click to edit/add: Vital Signs - 24 hr 07/26/23 15:00 07/26/23 15:00 07/26/23 23:00 Pulse Rate [Pulse Oximeter] 120 H Respiratory Rate 22 Oxygen Delivery Me thod Nasal Cannula Nasal Cannula Oxygen Flow Rate 1 1 07/26/23 23:00 07/27/23 08:05 Pulse Rate [Pulse Oximeter] 120 H Respiratory Rate 22 Oxygen Delivery Me thod Nasal Cannula Oxygen Flow Rate 1
[2023-07-27] MEDS: HYDROmorphone 0.5 mg/0.5 ml inj 2 MG IVP ×5 (10:03→22:46)
--- NOTE | 2023-07-27 11:29 | PC.SOCIAL ---
Per MD, pt's is imminent and pt will be kept at hospital for comfort cares. Met with pt's to follow up and ensure the family didn't have any further questions for social work. is in agreement with plan and has no further questions. has phone number to social work. This worker informed that this worker will update [facility]. Phone call to Corrie at [facility] at [phone] and provided update. Corrie will follow up with Social work tomorrow to ensure there are no changes. Social work will follow up as needed.
[2023-07-27] MEDS: LORazepam 2 MG/ML inj IVP (19:31)
[2023-07-27] MEDS: MORPHINE 10 MG/0.5 ML ORAL SOLN 20 MG PO ×4 (20:25→23:51)
[2023-07-27] MEDS: LORazepam 1 MG TABLET PO (20:35)
[2023-07-27 23:00] VITALS: PULSE 124; RESP 22
[2023-07-28] MEDS: MORPHINE 10 MG/0.5 ML ORAL SOLN 20 MG PO ×5 (00:54→07:13)
[2023-07-28] MEDS: HYDROmorphone 0.5 mg/0.5 ml inj 2 MG IVP ×4 (05:04→23:49)
--- NOTE | 2023-07-28 07:34 | PC.NURSE ---
SHIFT NOTE : Pt initially struggling with pain control, MD updated, new order received, see eMAR. Pt given PRN pain medication Q1H overnight, appears much more comfortable and family agrees pt is much less restless. Pt given pain medication based on symptoms (pt moans and becomes restless), pt unable to rate pain. Pt appears much more comfortable after pain medication is given. Pt turned and repositioned with a 2 assist, incontinent of urine x1, aaron care provided. Pt very uncomfortable with any movement, settles down once back at rest. Pt's sister stayed at the bedside overnight and is very supportive to pt.
[2023-07-28 08:00] VITALS: PULSE 133; RESP 22; O2SAT 83
[2023-07-28] MEDS: SODIUM CHLORIDE 0.9 % (FLUSH) 10 ML SYRINGE 5 ML IVF ×2 (09:51→20:35)
[2023-07-28] MEDS: MORPHINE 20 MG/ML **CONCENTRATE** ORAL PO ×4 (09:51→22:19)
--- NOTE | 2023-07-28 10:05 | PM.IMPN1 ---
Progress Note: A&P Assessment and plan (1) Terminal care: Problem details: - at this point, patient appears to be in imminent status, would not tolerate transfer - continue end of life comfort cares Status: Acute (2) Metastatic urothelial carcinoma: Problem details: - diagnosed August 2022 - widely metastatic to lungs, liver, and throughout the skeleton - disease progression despite having been treated with chemotherapy and immunotherapy - oncologist, Dr. Mishra, [place] [facility], [place], [place] Status: Acute (3) Cancer associated pain: Problem details: - difficult to manage pain despite escalating efforts in outpatient setting Status: Acute (4) Cancer cachexia: Status: Acute Plan - per above - and sister updated at bedside, questions answered Subjective Date Seen: 07/28/23 Interval history: Bernadette was admitted to the hospital on 07/26/23 for poorly managed pain in known metastatic bladder cancer. Given imminent status, she has not been transferred out of the hospital. Pain controlled, occasionally has pain-mitigating movements. Appears to have some hyperesthesia with cares. No concerns from family this morning. Exam Narrative: Exam Narrative: Patient is resting in bed, cachectic and tachypneic. Const: Vital Signs, click to edit/add: Vital Signs - 24 hr 07/27/23 16:57 07/27/23 23:00 07/27/23 23:00 Pulse Rate [Pulse Oximeter] 124 H Respiratory Rate 22 22 Oxygen Delivery Me thod Nasal Cannula Nasal Cannula Oxygen Flow Rate 1 1
[2023-07-28] MEDS: HALOPERIDOL 5 MG/ML INJ IV ×2 (11:18→22:18)
--- NOTE | 2023-07-28 15:11 | PC.SOCIAL ---
Social work: Received call from [facility] hospice requesting call with update on Monday to Jana [phone]. [facility] had provided an informational visit with family this week but has no plans to open pt to hospice at this time.
[2023-07-28 23:00] VITALS: RESP 38
[2023-07-29] MEDS: MORPHINE 20 MG/ML **CONCENTRATE** ORAL PO (00:03)
[2023-07-29] MEDS: LORazepam 2 MG/ML inj IVP ×4 (00:03→10:21)
[2023-07-29] MEDS: HYDROmorphone 0.5 mg/0.5 ml inj 2 MG IVP ×8 (00:28→13:41)
[2023-07-29] MEDS: MORPHINE 10 MG/0.5 ML ORAL SOLN 30 MG PO ×8 (01:04→13:25)
[2023-07-29] MEDS: HYOSCYAMINE SULFATE 0.125 MG TAB SUBLINGUAL (01:16)
--- NOTE | 2023-07-29 06:23 | PC.NURSE ---
End of shift report [id number]: Patient has remained non responsive this shift. Pain appeared to have increased for patient around 2230, family utilizing call light to report increased moaning and restlessness as well as junior copywriter assessing during rounds. Pain medication administered per orders. Patient required multiple doses of pain medications spaced every 30-45 minutes, junior copywriter notified interventional radiology rn and new orders to increase oral roxanol to 30mg Q1h prn. remained bedside throughout the night. No urine output this shift.
[2023-07-29 07:45] VITALS: PULSE 122; RESP 4; O2SAT 80
--- NOTE | 2023-07-29 08:14 | PM.IMPN1 ---
Progress Note: A&P Assessment and plan (1) Terminal care: Problem details: - at this point, patient appears to be in imminent status, would not tolerate transfer, anticipate within the next 12-24 hours. I spoke with the patient's about this probability. - continue end of life comfort cares Status: Acute (2) Metastatic urothelial carcinoma: Problem details: - diagnosed August 2022 - widely metastatic to lungs, liver, and throughout the skeleton - disease progression despite having been treated with chemotherapy and immunotherapy - oncologist, Dr. Mishra, [place] [facility], [place], [place] Status: Acute (3) Cancer associated pain: Problem details: - difficult to manage pain despite escalating efforts in outpatient setting Status: Acute (4) Cancer cachexia: Status: Acute Plan - updated at bedside, questions answered Subjective Time Seen by Provider: 07:50 Date Seen: 07/29/23 Interval history: Bernadette's nurse reports that she was very restless with pain overnight. She appears more comfortable this morning. Her , Frankie, is in the room with her, tearful. He reports that she appears comfortable and had a comfortable night. He is noticing that she was breathing rapidly overnight, but it appears to have slowed down now. He has not noted any apnea. Exam Narrative: Exam Narrative: General: Eyes open, staring, no response to verbal or physical stimuli. Mouth agape. Oropharynx: Clear. Mucous membranes dry. Cardiovascular: Tachycardic, regular. Respiratory: Tachypneic, shallow. No apnea noted, no Kussmaul breathing noted. Const: Vital Signs, click to edit/add: Vital Signs - 24 hr 07/28/23 23:00 Respiratory Rate 38 H Documenting provider has reviewed patient's vital signs: yes
[2023-07-29] MEDS: HALOPERIDOL 5 MG/ML INJ IV (08:35)
[2023-07-29] MEDS: fentaNYL 25 MCG/HR PATCH 1 PATCH TRANSDERMA ×2 (09:15→16:01)
[2023-07-29] MEDS: SODIUM CHLORIDE 0.9 % (FLUSH) 10 ML SYRINGE 5 ML IVF (10:20)
[2023-07-29] MEDS: ACETAMINOPHEN 650 MG SUPP PR (12:40)
[2023-07-29] MEDS: LORazepam 1 MG TABLET PO (13:41)
--- NOTE | 2023-07-29 14:04 | PC.NURSE ---
Patient time of 1349. Family present. [facility] notified via telephone immediately following . Not a candidate for organ donation, but the eye bank will call back.
--- NOTE | 2023-07-29 14:12 | P.DS_ITS ---
Discharge Sum: Prov Provider Date Seen: 07/29/23 Primary care physician: Not a Local Provider Consults: 07/25/23 20:49 Consult to Geographic Information Systems Director [CONS] Routine Comment: Reason for Consult:: Discharge Planning Needs Pronouncing clinician: Leighann Marin Discharge Sum: Diag Contributing Factors (1) Terminal care: (2) Metastatic urothelial carcinoma: (3) Cancer associated pain: (4) Cancer cachexia: Discharge Sum: Summary Date and Time Date of admission: 07/28/23 18:28 Time of : 13:49 Summary Details: Bernadette was a 62-year-old female with metastatic urothelial carcinoma that was progressive despite chemotherapy and immunotherapy efforts. She had known metastases to lung, liver, and skeleton. She had presented to Oncology on 07/25/2023 and was deemed that it was no longer safe for her to continue to receive chemotherapy. Referral was made for hospice consultation, and presented to the emergency department to assist with ongoing efforts to manage difficult cancer associated pain. She had been on methadone 3 times a day as well as oxycodone as needed till without achieving adequate pain control. She had minimal oral intake recently. Her BMI was 16.8 with a weight of 41.7 kg. Patient and in agreement with comfort focused measures, DNR/DNI. Patient was admitted for cancer related pain control at end of life. She was set up for hospice admission at home, but continued to require management of pain in then became imminent. Due to imminent status, she was then kept in the hospital and family was at bedside when she at 1349 today. I was immediately called and pronounced. Additional Data Confirmation of as documented by pronouncing clinician: no pulse, no respirations, no heart sounds, pupils fixed and dilated and other (very pale, mottled, no rigor yet) Family: at bedside Attending physician: Leighann Marin MD Was code activated?: No reexaminer notified?: Yes Organ bank notified?: Yes
--- NOTE | 2023-07-29 15:52 | PC.NURSE ---
PATIENT HAD RECEIVED FREQUENT MEDS FOR PAIN, INCLUDING ROXANOL, DILAUDID, ATIVAN AND HALDOL. T&R IN BED. FAMILY AT BEDSIDE. PATIENT AT 1349 WITH FAMILY AT BEDSIDE. DR. EDOUARD NOTIFIED AND CAME TO ROOM. [employer] [facility] NOTIFIED PER FAMILY REQUEST.
--- NOTE | 2023-07-29 19:05 | PC.NURSE ---
1900-- Body was released to [employer] mortician at 1900.
== END 2023-07-29 19:00 | disposition expired | DRG 461 ==
LOC: ED 19:31 → MEDSURG 20:44
PROVIDERS: Admitting Provider Internal Medicine; Emergency Provider Emergency Medicine; Visit Provider Internal Medicine
DX: C67.9 Malignant neoplasm of bladder, unspecified (principal); G89.3 Neoplasm related pain (acute) (chronic); E88.A Wasting disease (syndrome) due to underlying condition; C78.7 Secondary malignant neoplasm of liver and intrahepatic bile duct; C79.51 Secondary malignant neoplasm of bone; Z68.1 Body mass index [BMI] 19.9 or less, adult; Z51.5 Encounter for palliative care; C78.02 Secondary malignant neoplasm of left lung; C78.01 Secondary malignant neoplasm of right lung
CPT/HCPCS: 36415; 80053; 81001; 83605; 85025; 99283; 99284; 99285; A9270; G0378; J1170; J1630; J2060; J2405